=== PATIENT | female | born 1940 | race Caucasian/White ===

== ENCOUNTER 2019-02-05 11:42 | Inpatient (IN) | payer MEDICARE, MEDICAID ==
[~2019-02-05] VITALS: Ht 154.9 cm; Wt 49.0 kg
[2019-02-05 13:11] LABS: BASOPHILS % 0.6 % (0.0-2.0); EOSINOPHILS % 2.6 % (0.0-5.0); HEMATOCRIT. 36.6 % (36.0-48.0); HEMOGLOBIN. 12.6 g/dL (12.0-16.0); LYMPHOCYTES % 31.1 % (20.0-50.0); MEAN CORPUSCULAR VOLUME 92.5 fL (81.0-99.0); MEAN PLATELET VOLUME 9.4 fl (7.4-10.4); MONOCYTES % 5.1 % (2.0-8.0); NEUTROPHILS % 60.6 % (40.0-76.0); PLATELET 247 x1000/uL (130-400); RED BLOOD CELL COUNT 3.95 mill/uL (4.2-5.4); RED CELL DISTRIBUTION WIDTH 13.3 % (11.6-14.6)
[2019-02-05 13:20] LABS: CHLORIDE 107 mEq/L (98-107); INR 0.9; PROTHROMBIN TIME 9.7 sec (9.6-11.0)
[2019-02-05 13:25] LABS: ETHANOL BLOOD < 10 mg/dL
[2019-02-05 13:27] LABS: LDL CHOLESTEROL 136 mg/dL (5-100)
[2019-02-05] MEDS ORDERED: ASPIRIN 325MG EC TABLET PO ONE (14:45)
[2019-02-05] MEDS ORDERED: DEXTROSE 50% WATER 50ML SYRINGE IV PRN (14:45)
[2019-02-05] MEDS ORDERED: CLONIDINE 0.1MG TABLET PO PRN (14:45)
[2019-02-05] MEDS: LOSARTAN POTASSIUM 50 MG TABLET PO SCH (16:45)
[2019-02-05 18:35] LABS: CLARITY URINE CLEAR (CLEAR); COLOR URINE YELLOW (YELLOW); KETONES URINE NEGATIVE (NEGATIVE); LEUKOCYTE ESTERASE URINE NEGATIVE (NEGATIVE); NITRITE URINE NEGATIVE (NEGATIVE); OCCULT BLOOD URINE NEGATIVE (NEGATIVE); PH URINE 5.5 (4.5-8.0); PROTEIN URINE NEGATIVE (NEGATIVE); SPECIFIC GRAVITY URINE 1.009 (1.005-1.030); UROBILINOGEN URINE 0.2 E.U./dL (0.2-1.0)
[2019-02-05] MEDS: INSULIN LISPRO 100 UNITS/ML SUBCUT SCH ×2 (19:12→21:00)
[2019-02-05] MEDS: BLOOD SUGAR DIAGNOSTIC STRIP TEST SCH (21:00)
[2019-02-05 22:30] VITALS: BP 152/63
[2019-02-05] MEDS ORDERED: METF-414 PO (23:18)
[2019-02-05] MEDS ORDERED: ASPI-1393 PO (23:18)
[2019-02-05 23:19] LABS: *AMPHETAMINES SCREEN URINE NEGATIVE (NEGATIVE); *BENZODIAZEPINES SCREEN URINE NEGATIVE (NEGATIVE); *COCAINE SCREEN URINE NEGATIVE (NEGATIVE)
[2019-02-05 23:20] LABS: CANNABINOID URINE SCREEN NEGATIVE (NEGATIVE); METHADONE URINE SCREEN NEGATIVE (NEGATIVE); OPIATES URINE SCREEN NEGATIVE (NEGATIVE); PHENCYCLIDINE URINE SCREEN NEGATIVE (NEGATIVE)
[2019-02-05 23:26] LABS: *BARBITURATES SCREEN URINE NEGATIVE (NEGATIVE)
[2019-02-06] VITALS: BP 138/54
[2019-02-06] MEDS: ATORVASTATIN CALCIUM 40MG TABLET PO SCH ×2 (01:51→21:24)
[2019-02-06 04:00] VITALS: BP 124/60
[2019-02-06 06:49] LABS: BASOPHILS % 0.3 % (0.0-2.0); EOSINOPHILS % 3.7 % (0.0-5.0); HEMATOCRIT. 35.9 % (36.0-48.0); HEMOGLOBIN. 12.3 g/dL (12.0-16.0); LYMPHOCYTES % 40.7 % (20.0-50.0); MEAN CORPUSCULAR HEMOGLOBIN 31.8 pg (28.0-32.0); MEAN CORPUSCULAR VOLUME 92.5 fL (81.0-99.0); MEAN PLATELET VOLUME 9.5 fl (7.4-10.4); MONOCYTES % 5.8 % (2.0-8.0); NEUTROPHILS % 49.5 % (40.0-76.0); PLATELET 241 x1000/uL (130-400); RED BLOOD CELL COUNT 3.88 mill/uL (4.2-5.4); RED CELL DISTRIBUTION WIDTH 13.5 % (11.6-14.6)
[2019-02-06] MEDS: BLOOD SUGAR DIAGNOSTIC STRIP TEST SCH ×4 (06:50→20:28)
[2019-02-06 06:55] LABS: CHLORIDE 104 mEq/L (98-107)
[2019-02-06 08:00] VITALS: BP 114/56
[2019-02-06] MEDS: LOSARTAN POTASSIUM 50 MG TABLET PO SCH (09:28)
[2019-02-06] MEDS: CLOPIDOGREL 75MG TABLET PO SCH (09:28)
[2019-02-06] MEDS: AMLODIPINE 5MG TABLET PO SCH ×2 (09:29→21:24)
[2019-02-06] MEDS: ENOXAPARIN 40MG/0.4ML SYR SUBCUT SCH (09:30)
[2019-02-06] MEDS: INSULIN LISPRO 100 UNITS/ML SUBCUT SCH ×4 (09:36→21:24)
[2019-02-06 09:51] LABS: T4 FREE 0.95 ng/dL (0.76-1.46)
[2019-02-06 10:22] LABS: FOLIC ACID (FOLATE) SERUM > 20.00 ng/mL (>5.38)
[2019-02-06 10:26] LABS: VITAMIN B12 SERUM 287 pg/mL (211-911)
[2019-02-06 12:00] VITALS: BP 137/48
[2019-02-06 16:00] VITALS: BP 124/49
[2019-02-06] MEDS: METFORMIN HCL 500MG TABLET PO SCH (18:12)
[2019-02-06 20:00] VITALS: BP 134/57
[2019-02-07] VITALS: BP 131/55
[2019-02-07 04:00] VITALS: BP 119/53
[2019-02-07 05:49] LABS: CHLORIDE 105 mEq/L (98-107)
[2019-02-07 05:51] LABS: BASOPHILS % 0.6 % (0.0-2.0); EOSINOPHILS % 3.9 % (0.0-5.0); HEMATOCRIT. 40.2 % (36.0-48.0); LYMPHOCYTES % 37.7 % (20.0-50.0); MEAN PLATELET VOLUME 9.4 fl (7.4-10.4); MONOCYTES % 6.4 % (2.0-8.0); NEUTROPHILS % 51.4 % (40.0-76.0); PLATELET 264 x1000/uL (130-400); RED BLOOD CELL COUNT 4.37 mill/uL (4.2-5.4); RED CELL DISTRIBUTION WIDTH 13.1 % (11.6-14.6)
[2019-02-07] MEDS: BLOOD SUGAR DIAGNOSTIC STRIP TEST SCH ×4 (06:31→21:10)
[2019-02-07 08:00] VITALS: BP 121/56
[2019-02-07] MEDS: LOSARTAN POTASSIUM 50 MG TABLET PO SCH (09:32)
[2019-02-07] MEDS: CLOPIDOGREL 75MG TABLET PO SCH (09:32)
[2019-02-07] MEDS: AMLODIPINE 5MG TABLET PO SCH ×2 (09:32→21:10)
[2019-02-07] MEDS: METFORMIN HCL 500MG TABLET PO SCH ×2 (09:32→18:29)
[2019-02-07] MEDS: ENOXAPARIN 40MG/0.4ML SYR SUBCUT SCH (09:33)
[2019-02-07] MEDS: INSULIN LISPRO 100 UNITS/ML SUBCUT SCH ×4 (09:40→21:10)
[2019-02-07] MEDS: INSULIN GLARGINE UD 100 UNITS/ML SYR SUBCUT SCH (11:43)
[2019-02-07 12:00] VITALS: BP 105/57
[2019-02-07] MEDS ORDERED: IOHEXOL-350 100 ML BOTTLE ONE ×2 (12:29→18:27)
[2019-02-07 16:00] VITALS: BP 123/54
[2019-02-07 20:00] VITALS: BP 131/52
[2019-02-07] MEDS: ATORVASTATIN CALCIUM 40MG TABLET PO SCH (21:10)
[2019-02-08] VITALS: BP 122/53
[2019-02-08 04:00] VITALS: BP 128/55
[2019-02-08] MEDS: BLOOD SUGAR DIAGNOSTIC STRIP TEST SCH ×2 (06:28→12:31)
[2019-02-08 07:50] LABS: CHLORIDE 107 mEq/L (98-107)
[2019-02-08 08:00] VITALS: BP 118/58
[2019-02-08] MEDS: ENOXAPARIN 40MG/0.4ML SYR SUBCUT SCH (10:39)
[2019-02-08] MEDS: METFORMIN HCL 500MG TABLET PO SCH (10:39)
[2019-02-08] MEDS: AMLODIPINE 5MG TABLET PO SCH (10:39)
[2019-02-08] MEDS: CLOPIDOGREL 75MG TABLET PO SCH (10:40)
[2019-02-08] MEDS: LOSARTAN POTASSIUM 50 MG TABLET PO SCH (10:40)
[2019-02-08] MEDS: INSULIN LISPRO 100 UNITS/ML SUBCUT SCH ×2 (10:41→12:49)
[2019-02-08] MEDS: INSULIN GLARGINE UD 100 UNITS/ML SYR SUBCUT SCH (10:41)
[2019-02-08 12:00] VITALS: BP 144/56
[2019-02-08 16:00] VITALS: BP 143/55
[2019-02-08 16:24] VITALS: BP 143/55
[2019-02-09] MEDS ORDERED: CYANOCOBALAMIN 1000MCG TABLET PO SCH (07:50)
== END 2019-02-08 17:37 | disposition home or self-care (01) | DRG 65 ==
LOC: ER 11:42 → 6WST 14:25 → EDBEDREQ 14:27 → EDBEDREQTM 14:27 → EDBEDREQSVC 14:27 → ENRESERV 21:03
PROVIDERS: ADMIT Internal Medicine; ATTEND Internal Medicine
DX: I63.81 Other cerebral infarction due to occlusion or stenosis of small artery (principal); E44.1 Mild protein-calorie malnutrition; E11.9 Type 2 diabetes mellitus without complications; R26.9 Unspecified abnormalities of gait and mobility; R47.1 Dysarthria and anarthria; E78.00 Pure hypercholesterolemia, unspecified; E78.5 Hyperlipidemia, unspecified; I10 Essential (primary) hypertension; Z98.42 Cataract extraction status, left eye; Z98.41 Cataract extraction status, right eye; Z68.20 Body mass index [BMI] 20.0-20.9, adult
CPT/HCPCS: 36415; 70496; 70544; 70551; 71045; 80048; 80061; 80305; 80320; 81003; 82607; 82746; 82962; 83036; 83721; 84439; 84443; 84481; 84484; 93005; 93306; 93880; 97162; 97165; 99291; J1650; J1815; Q9967; G0480

== ENCOUNTER 2021-07-11 19:07 | Inpatient (IN) | payer MEDICARE, MEDICAID ==
[~2021-07-11] VITALS: Ht 144.8 cm; Wt 48.1 kg
[~2021-07-11 19:07] MED LIST: METF-414 PO
[2021-07-11] MEDS ORDERED: ASPIRIN 325MG EC TABLET PO ONE (23:45)
[2021-07-12 00:21] LABS: BASOPHILS % 0.6 % (0.0-2.0); EOSINOPHILS % 1.7 % (0.0-5.0); HEMATOCRIT. 41.7 % (36.0-48.0); HEMOGLOBIN. 14.1 g/dL (12.0-16.0); LYMPHOCYTES % 26.2 % (20.0-50.0); MEAN CORPUSCULAR HEMOGLOBIN 31.7 pg (28.0-32.0); MEAN CORPUSCULAR VOLUME 93.5 fL (81.0-99.0); MEAN PLATELET VOLUME 8.6 fl (7.4-10.4); MONOCYTES % 7.2 % (2.0-8.0); NEUTROPHILS % 64.3 % (40.0-76.0); PLATELET 279 x1000/uL (130-400); RED BLOOD CELL COUNT 4.46 mill/uL (4.2-5.4); RED CELL DISTRIBUTION WIDTH 12.5 % (11.6-14.6)
[2021-07-12 00:27] LABS: PARTIAL THROMBOPLASTIN TIME 27.2 sec (23.4-31.0); PROTHROMBIN TIME 10.3 sec (9.6-11.0)
[2021-07-12 00:37] LABS: CHLORIDE 107 mEq/L (98-107)
[2021-07-12] MEDS ORDERED: HYDRALAZINE 20MG/ML VIAL IV ONE ×2 (01:00→06:30)
[2021-07-12] MEDS ORDERED: DIPHENHYDRAMINE 50MG/ML VIAL IV ONE (01:45)
[2021-07-12] MEDS ORDERED: PROCHLORPERAZINE 10MG/2ML VIAL IV PRN (01:45)
[2021-07-12] MEDS ORDERED: SODIUM CHLORIDE 0.9% 1,000 ML IV ONE (01:45)
[2021-07-12 02:05] LABS: CLARITY URINE CLEAR (CLEAR); COLOR URINE YELLOW (YELLOW); KETONES URINE NEGATIVE (NEGATIVE); LEUKOCYTE ESTERASE URINE TRACE (NEGATIVE); NITRITE URINE NEGATIVE (NEGATIVE); OCCULT BLOOD URINE NEGATIVE (NEGATIVE); PROTEIN URINE TRACE (NEGATIVE); SPECIFIC GRAVITY URINE 1.007 (1.005-1.030); UROBILINOGEN URINE 0.2 E.U./dL (0.2-1.0)
[2021-07-12] MEDS ORDERED: DIPHENHYDRAMINE 50MG/ML VIAL IV PRN (09:30)
[2021-07-12] MEDS ORDERED: ONDANSETRON HCL 4MG/2ML INJ IV PRN (09:30)
[2021-07-12] MEDS ORDERED: HYDRALAZINE 20MG/ML VIAL IV PRN (09:30)
[2021-07-12] MEDS ORDERED: IPRATROPIUM/ALBUTEROL 0.5-3(2.5)MG/3ML NEB HHN PRN (09:30)
[2021-07-12 12:00] VITALS: BP 140/73
[2021-07-12 12:30] VITALS: BP 140/73
[2021-07-12 16:00] VITALS: BP 150/78
[2021-07-12] MEDS ORDERED: DEXTROSE 50% WATER 50ML SYRINGE IV PRN (17:30)
[2021-07-12 19:40] LABS: T4 FREE 1.04 ng/dL (0.76-1.46)
[2021-07-12 19:59] LABS: FOLIC ACID (FOLATE) SERUM >20 ng/mL ng/mL (>5.38)
[2021-07-12 20:00] VITALS: BP 155/71
[2021-07-12 20:10] LABS: VITAMIN B12 SERUM 508 pg/mL (211-911)
[2021-07-12] MEDS: BLOOD SUGAR DIAGNOSTIC STRIP TEST SCH (21:00)
[2021-07-12] MEDS: INSULIN LISPRO 100 UNITS/ML SUBCUT SCH ×2 (21:00→21:19)
[2021-07-12] MEDS: CLONIDINE 0.1MG TABLET PO PRN (21:06)
[2021-07-13] VITALS: BP 147/72
[2021-07-13 04:00] VITALS: BP 139/67
[2021-07-13] MEDS: BLOOD SUGAR DIAGNOSTIC STRIP TEST SCH ×4 (06:07→23:55)
[2021-07-13] MEDS: INSULIN LISPRO 100 UNITS/ML SUBCUT SCH ×3 (06:19→17:19)
[2021-07-13 06:50] LABS: BASOPHILS % 0.4 % (0.0-2.0); EOSINOPHILS % 1.9 % (0.0-5.0); HEMATOCRIT. 37.7 % (36.0-48.0); LYMPHOCYTES % 27.3 % (20.0-50.0); MEAN CORPUSCULAR HEMOGLOBIN 32.6 pg (28.0-32.0); MEAN CORPUSCULAR VOLUME 94.8 fL (81.0-99.0); MEAN PLATELET VOLUME 9.1 fl (7.4-10.4); MONOCYTES % 7.5 % (2.0-8.0); NEUTROPHILS % 62.9 % (40.0-76.0); PLATELET 251 x1000/uL (130-400); RED BLOOD CELL COUNT 3.98 mill/uL (4.2-5.4)
[2021-07-13 07:07] LABS: CHLORIDE 107 mEq/L (98-107)
[2021-07-13 07:17] LABS: LDL CHOLESTEROL 137 mg/dL (5-100)
[2021-07-13 07:19] LABS: HDL CHOLESTEROL 60 mg/dL (40-59)
[2021-07-13 08:00] VITALS: BP 148/73
[2021-07-13] MEDS ORDERED: CLOPIDOGREL 75MG TABLET PO SCH (09:00)
[2021-07-13] MEDS ORDERED: GADOTERATE MEGLUMINE 5 MMOL/10 ML VIAL IV ONE (12:25)
[2021-07-13] MEDS: ACETAMINOPHEN 325MG TABLET PO PRN ×2 (14:23→20:10)
[2021-07-13 16:00] VITALS: BP 125/58
[2021-07-13 20:00] VITALS: BP 150/71
[2021-07-14] VITALS (7 sets, daily range): BP systolic 131–180; BP diastolic 63–77
[2021-07-14] MEDS: INSULIN LISPRO 100 UNITS/ML SUBCUT SCH ×5 (00:01→21:39)
[2021-07-14] MEDS ORDERED: IOHEXOL-350 100 ML BOTTLE ONE (00:13)
[2021-07-14] MEDS: BLOOD SUGAR DIAGNOSTIC STRIP TEST SCH ×4 (06:20→21:36)
[2021-07-14 07:19] LABS: BASOPHILS % 0.5 % (0.0-2.0); EOSINOPHILS % 3.3 % (0.0-5.0); HEMOGLOBIN. 13.1 g/dL (12.0-16.0); LYMPHOCYTES % 22.7 % (20.0-50.0); MEAN CORPUSCULAR HEMOGLOBIN 32.5 pg (28.0-32.0); MEAN CORPUSCULAR VOLUME 92.1 fL (81.0-99.0); MEAN PLATELET VOLUME 9.1 fl (7.4-10.4); NEUTROPHILS % 66.5 % (40.0-76.0); PLATELET 248 x1000/uL (130-400); RED BLOOD CELL COUNT 4.02 mill/uL (4.2-5.4); RED CELL DISTRIBUTION WIDTH 12.7 % (11.6-14.6)
[2021-07-14 07:25] LABS: CHLORIDE 107 mEq/L (98-107)
[2021-07-14] MEDS: ACETAMINOPHEN 325MG TABLET PO PRN ×2 (08:32→19:09)
[2021-07-14] MEDS ORDERED: ATOR40TA70 MT (09:46)
[2021-07-14] MEDS ORDERED: INSU100I28 SQ (09:46)
[2021-07-14] MEDS: CLONIDINE 0.1MG TABLET PO PRN (12:52)
[2021-07-14] MEDS: INSULIN GLARGINE 100 UNITS/ML SUBCUT SCH ×2 (12:53→21:40)
[2021-07-14] MEDS ORDERED: ATORVASTATIN CALCIUM 40MG TABLET PO SCH (21:00)
[2021-07-15] VITALS: BP 140/65
[2021-07-15 04:00] VITALS: BP 143/67
[2021-07-15] MEDS: INSULIN LISPRO 100 UNITS/ML SUBCUT SCH ×3 (05:29→18:11)
[2021-07-15] MEDS: BLOOD SUGAR DIAGNOSTIC STRIP TEST SCH ×3 (05:29→17:10)
[2021-07-15] MEDS: ACETAMINOPHEN 325MG TABLET PO PRN ×2 (07:22→19:39)
[2021-07-15] MEDS: CLONIDINE 0.1MG TABLET PO PRN (09:44)
[2021-07-15] MEDS: INSULIN GLARGINE 100 UNITS/ML SUBCUT SCH (09:47)
[2021-07-15] MEDS ORDERED: CLOP-31 MT (10:57)
[2021-07-15] MEDS ORDERED: CLOPIDOGREL 75MG TABLET PO SCH (11:00)
[2021-07-15 19:35] VITALS: BP 137/76
== END 2021-07-15 20:15 | DRG 65 ==
LOC: ER 19:07 → MICUSO 07-12 01:03 → 8WST 07-12 12:28
PROVIDERS: ADMIT Internal Medicine; ATTEND Internal Medicine
DX: I62.9 Nontraumatic intracranial hemorrhage, unspecified (principal); I16.1 Hypertensive emergency; E78.00 Pure hypercholesterolemia, unspecified; H53.462 Homonymous bilateral field defects, left side; R53.81 Other malaise; R26.9 Unspecified abnormalities of gait and mobility; Z60.2 Problems related to living alone; I08.0 Rheumatic disorders of both mitral and aortic valves; I10 Essential (primary) hypertension; E11.65 Type 2 diabetes mellitus with hyperglycemia; Z79.02 Long term (current) use of antithrombotics/antiplatelets; Z79.4 Long term (current) use of insulin; Z82.49 Family history of ischemic heart disease and other diseases of the circulatory system; Z79.84 Long term (current) use of oral hypoglycemic drugs; I65.23 Occlusion and stenosis of bilateral carotid arteries
CPT/HCPCS: 36415; 70496; 70498; 70553; 71045; 80048; 80053; 80061; 81003; 82607; 82746; 82962; 83036; 84439; 84443; 84481; 84484; 85025; 93005; 93306; 93880; 93970; 97162; 97166; 97535; 99285; A9577; J0360; J1200; J1815; J7030; Q9967

== ENCOUNTER 2022-08-10 06:39 | Inpatient (IN) | payer MEDICARE, MEDICAID ==
[~2022-08-10] VITALS: Ht 154.9 cm; Wt 43.5 kg
[~2022-08-10 06:39] MED LIST changes: +ATOR40TA70 MT; +CLOP-31 MT; +INSU100I28 SQ
[2022-08-10] MEDS ORDERED: BENA5TAB40 MT (07:49)
[2022-08-10] MEDS ORDERED: INSU100V37 SQ (07:49)
[2022-08-10] MEDS ORDERED: LOSA-413 MT (07:49)
[2022-08-10] MEDS ORDERED: MEMA5TAB42 MT (07:49)
[2022-08-10] MEDS ORDERED: SITA100T11 MT (07:49)
[2022-08-10] MEDS ORDERED: SERT-422 MT (07:49)
[2022-08-10] MEDS ORDERED: METF-874 MT (07:49)
[2022-08-10] MEDS ORDERED: ATOR80TA MT (07:49)
[2022-08-10] MEDS ORDERED: LIDOCAINE HCL 1% 20ML VIAL (Pyxis) INJ ONE (08:36)
[2022-08-10] MEDS ORDERED: IODIXANOL 320MG/ML 100 ML BOTTLE IV ONE (08:36)
[2022-08-10] MEDS ORDERED: HEPARIN 1000 UNITS/ML 10ML ONE (08:36)
[2022-08-10] MEDS ORDERED: MIDAZOLAM HCL 2 MG/2 ML VIAL ONE (08:43)
[2022-08-10] MEDS ORDERED: FENTANYL CITRATE/PF 50MCG/ML 2ML VIAL ONE (08:43)
[2022-08-10] MEDS ORDERED: HYDRALAZINE 20MG/ML VIAL ONE (10:18)
[2022-08-10] MEDS ORDERED: CLOPIDOGREL 75MG TABLET ONE (10:35)
[2022-08-10] MEDS ORDERED: ASPIRIN 325MG EC TABLET PO ONE (10:35)
[2022-08-10] MEDS ORDERED: ONDANSETRON HCL 4MG/2ML INJ IV PRN (10:45)
[2022-08-10] MEDS ORDERED: ATROPINE SULFATE 1MG/10ML SYR IV PRN (10:45)
[2022-08-10] MEDS ORDERED: ACETAMINOPHEN 325MG TABLET PO PRN (10:45)
[2022-08-10 11:16] VITALS: BP 107/46
[2022-08-10 11:24] VITALS: BP 107/46
[2022-08-10] MEDS ORDERED: DEXTROSE 50% WATER 50ML SYRINGE IV PRN (13:30)
[2022-08-10 16:00] VITALS: BP 131/68
[2022-08-10] MEDS: BLOOD SUGAR DIAGNOSTIC STRIP TEST SCH ×2 (16:50→21:50)
[2022-08-10] MEDS: INSULIN LISPRO 100 UNITS/ML SUBCUT SCH ×2 (17:54→21:59)
[2022-08-10 20:18] VITALS: BP 156/68
[2022-08-10] MEDS ORDERED: ATORVASTATIN CALCIUM 20MG TABLET PO SCH (21:00)
[2022-08-11 00:28] VITALS: BP 135/66
[2022-08-11 03:09] VITALS: BP 138/67
[2022-08-11] MEDS: BLOOD SUGAR DIAGNOSTIC STRIP TEST SCH (06:25)
[2022-08-11 06:31] LABS: BASOPHILS % 0.3 % (0.0-2.0); HEMATOCRIT. 37.3 % (36.0-48.0); HEMOGLOBIN. 12.7 g/dL (12.0-16.0); LYMPHOCYTES % 18.6 % (20.0-50.0); MEAN CORPUSCULAR HEMOGLOBIN 32.7 pg (28.0-32.0); MEAN CORPUSCULAR VOLUME 95.8 fL (81.0-99.0); MEAN PLATELET VOLUME 8.4 fl (7.4-10.4); MONOCYTES % 9.4 % (2.0-8.0); NEUTROPHILS % 70.7 % (40.0-76.0); PLATELET 267 x1000/uL (130-400); RED BLOOD CELL COUNT 3.89 mill/uL (4.2-5.4)
[2022-08-11 06:50] LABS: CHLORIDE 107 mEq/L (98-107)
[2022-08-11 08:00] VITALS: BP 118/53
[2022-08-11] MEDS: INSULIN LISPRO 100 UNITS/ML SUBCUT SCH (08:23)
[2022-08-11] MEDS ORDERED: LOSARTAN POTASSIUM 25 MG TABLET PO SCH (09:00)
[2022-08-11] MEDS ORDERED: ASPIRIN 325MG TABLET PO SCH (09:00)
[2022-08-11] MEDS ORDERED: CLOPIDOGREL 75MG TABLET PO SCH (09:00)
[2022-08-11 10:01] VITALS: BP 118/53
== END 2022-08-11 10:50 | disposition home health service (06) | DRG 254 ==
LOC: CCL 06:39 → 3WST 06:40
PROVIDERS: ADMIT Specialist; ATTEND Specialist
PROC: 047L36Z Dilation of Left Femoral Artery with Three Drug-eluting Intraluminal Devices, Percutaneous Approach (ICD-10-PCS; principal; 2022-08-10)
PROC: 047N3ZZ Dilation of Left Popliteal Artery, Percutaneous Approach (ICD-10-PCS; 2022-08-10)
PROC: B41GYZZ Fluoroscopy of Left Lower Extremity Arteries using Other Contrast (ICD-10-PCS; 2022-08-10)
DX: I70.202 Unspecified atherosclerosis of native arteries of extremities, left leg (principal); I65.21 Occlusion and stenosis of right carotid artery; E11.51 Type 2 diabetes mellitus with diabetic peripheral angiopathy without gangrene; E78.5 Hyperlipidemia, unspecified; I10 Essential (primary) hypertension; I25.10 Atherosclerotic heart disease of native coronary artery without angina pectoris; I34.0 Nonrheumatic mitral (valve) insufficiency; Z86.73 Personal history of transient ischemic attack (TIA), and cerebral infarction without residual deficits; Z79.84 Long term (current) use of oral hypoglycemic drugs; Z79.02 Long term (current) use of antithrombotics/antiplatelets; Z79.899 Other long term (current) drug therapy; Z90.710 Acquired absence of both cervix and uterus; Z79.4 Long term (current) use of insulin
CPT/HCPCS: 36415; 37226; 75710; 80048; 82962; 83036; 83735; 85025; 85347; C1725; C1760; C1769; C1876; C1887; C1893; C1894; J0360; J1644; J1815; J2250; J3010; J3490; Q9967

== ENCOUNTER 2023-10-05 06:04 | Day surgery (SDC) | payer MEDICARE, MEDICAID ==
[~2023-10-05] VITALS: Ht 134.6 cm; Wt 44.9 kg
[~2023-10-05 06:04] MED LIST changes: +ASPI-1497 PO; -ATOR40TA70 MT; +ATOR80TA PO; -CLOP-31 MT; +CLOP-31 PO; +EMPA25TA PO; +EZET10TA81 PO; +INSNOV SUBCUT; -INSU100I28 SQ; +LISI40TA13 PO; +MEMA5TAB7 PO; -METF-414 PO
[2023-10-05] MEDS: SODIUM CHLORIDE 0.45% 500 ML IV ONE (07:28)
[2023-10-05] MEDS ORDERED: INSU100V40 SUBCUT (08:21)
[2023-10-05] MEDS ORDERED: FENTANYL CITRATE/PF 50MCG/ML 2ML VIAL ONE (08:41)
[2023-10-05] MEDS ORDERED: IODIXANOL 320MG/ML 100 ML BOTTLE IV ONE (08:42)
[2023-10-05] MEDS ORDERED: HEPARIN 1000 UNITS/ML 10ML ONE (08:42)
[2023-10-05] MEDS ORDERED: MIDAZOLAM HCL 2 MG/2 ML VIAL ONE (08:42)
[2023-10-05] MEDS ORDERED: LIDOCAINE HCL 1% 20ML VIAL ONE (08:43)
[2023-10-05] MEDS ORDERED: HYDRALAZINE 20MG/ML VIAL ONE (09:27)
[2023-10-05] MEDS ORDERED: INSNOV SUBCUT (09:44)
[2023-10-05] MEDS ORDERED: ATROPINE SULFATE 1MG/10ML SYR IV PRN (10:00)
[2023-10-05] MEDS ORDERED: ACETAMINOPHEN 325MG TABLET PO PRN (10:00)
[2023-10-05] MEDS ORDERED: ONDANSETRON HCL 4MG/2ML INJ IV PRN (10:00)
== END 2023-10-05 14:30 | disposition home or self-care (01) ==
LOC: CCL 06:04
PROVIDERS: ATTEND Specialist
DX: E11.51 Type 2 diabetes mellitus with diabetic peripheral angiopathy without gangrene (principal); I70.222 Atherosclerosis of native arteries of extremities with rest pain, left leg; I10 Essential (primary) hypertension; E78.5 Hyperlipidemia, unspecified; Z79.82 Long term (current) use of aspirin; Z79.899 Other long term (current) drug therapy; Z79.4 Long term (current) use of insulin; Z98.890 Other specified postprocedural states; Z82.49 Family history of ischemic heart disease and other diseases of the circulatory system; Z83.3 Family history of diabetes mellitus
CPT/HCPCS: 75716; 82962; 36247; C1725; J3010; Q9967; J1644 ×2; J0360; J3490; J2250; C1769; 36246; 99152; G0500